=== PATIENT | female | born 1960 | race Caucasian/White ===

== ENCOUNTER 2016-12-16 14:33 | Emergency (ER) | payer OTHER ==
[2016-12-16 15:03] LABS: HEMOGLOBIN 12.7 gm/dl (12.3-15.3); RED BLOOD COUNT 4.1 M/UL (4.00-5.10); WHITE BLOOD COUNT 8.8 K/UL (4.5-11.0)
[2016-12-16 15:38] LABS: BUN/CREATININE RATIO 20 (0-10)
== END 2016-12-16 18:00 | disposition home or self-care (01) ==
LOC: ER1 14:33
PROVIDERS: Specialist/Technologist Athletic Trainer
DX: R00.2 Palpitations (principal); E11.65 Type 2 diabetes mellitus with hyperglycemia; R74.0 Nonspecific elevation of levels of transaminase and lactic acid dehydrogenase [LDH]; R07.9 Chest pain, unspecified; Z90.49 Acquired absence of other specified parts of digestive tract; Z79.899 Other long term (current) drug therapy; Z79.4 Long term (current) use of insulin
CPT/HCPCS: 36415; 71010; 80053; 80162; 81001; 82009; 82550; 82553; 83874; 84439; 84443; 84484; 85025; 93005; 99285